=== PATIENT | female | born 1995 | race Caucasian/White ===

== ENCOUNTER 2018-08-13 16:26 | Emergency (ER) | payer OTHER ==
--- NOTE | 2018-08-13 16:55 | ED ---
Psychiatric Complaint - HPI Summary HPI Summary: A 23 y/o female presents to [facility] with a chief complaint of depression. She reports that three days ago she tried to kill herself by putting a knife to her wrists. She went to [facility] where she had blood drawn and was discharged. She reports that she just felt overwhelmed and has no current SI, but wants to get help now before the suicidal thoughts come back. She notes a Hx of anxiety and depression. 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 She claims that she still may want to use those drugs but that she doesn't have enough money. Currently she denies any smoking, drug or alcohol use. - History Of Current Complaint Chief Complaint: [facility]MentalHealth Time Seen by Provider: 08/13/18 16:37 Hx Obtained From: Patient Hx Last Menstrual Period: END OF JUNE Onset/Duration: Sudden Onset, Lasting Days, Still Present Timing: Constant Severity Initially: Mild Severity Currently: Mild Character: Depressed Aggravating Factor(s): Nothing Alleviating Factor(s): Nothing Associated Signs And Symptoms: Negative: Hostile Related History: Positive For: Prior Psychiatric Issues - Allergies/Home Medications Allergies/Adverse Reactions: Allergies Allergy/AdvReac Type Severity Reaction Status Date / Time No Known Allergies Allergy Verified 08/13/18 16:35 Home Medications: Home Medications Norethindr/Eth Estradiol(Nf) [Lo Loestrin Fe (NF)] 1 tab PO DAILY 08/13/18 [ History Confirmed 08/13/18] PMH/Surg Hx/FS Hx/Imm Hx Endocrine/Hematology History: Denies: Hx Diabetes, Hx Thyroid Disease Cardiovascular History: Denies: Hx Hypertension Respiratory History: Denies: Hx Asthma, Hx Chronic Obstructive Pulmonary Disease (COPD) GI History: Denies: Hx Ulcer Musculoskeletal History: Reports: Hx Back Problems - Surgical History Surgery Procedure, Year, and Place: aortic stenosis x2 procedures Infectious Disease History: No Infectious Disease History: Denies: Hx Clostridium Difficile, Hx Hepatitis, Hx Human Immunodeficiency Virus (HIV), Hx of Known/Suspected MRSA, Hx Shingles, Hx Tuberculosis, Hx Known/ Suspected VRE, Hx Known/Suspected VRSA, History Other Infectious Disease, Traveled Outside the [place] in Last 30 Days - Family History Known Family History: Positive: Other - mom recently with cervical CA - Social History Alcohol Use: None Substance Use Type: Reports: None Smoking Status (MU): Current Every Day Smoker Type: Cigarettes Amount Used/How Often: 1/2 pack/WEEKLY Length of Time of Smoking/Using Tobacco: ~5 YRS Have You Smoked in the Last Year: Yes Review of Systems Negative: Fever Psychological: Other - negative: SI or HI Positive: Other - positive: Pt wants to get help before SI returns All Other Systems Reviewed And Are Negative: Yes Physical Exam - Summary Physical Exam Summary: VITAL SIGNS: Reviewed. GENERAL: Patient is a well-developed and nourished FEMALE who is lying comfortable in the stretcher. Patient is not in any acute respiratory distress. HEAD AND FACE: No signs of trauma. No ecchymosis, hematomas or skull depressions. No sinus tenderness. EYES: PERRLA, EOMI x 2, No injected conjunctiva, no nystagmus. EARS: Hearing grossly intact. Ear canals and tympanic membranes are within normal limits. MOUTH: Oropharynx within normal limits. NECK: Supple, trachea is midline, no adenopathy, no JVD, no carotid bruit, no c- spine tenderness, neck with full ROM. CHEST: Symmetric, no tenderness at palpation LUNGS: Clear to auscultation bilaterally. No wheezing or crackles. CVS: Regular rate and rhythm, S1 and S2 present, no murmurs or gallops appreciated. ABDOMEN: Soft, non-tender. No signs of distention. No rebound no guarding, and no masses palpated. Bowel sounds are normal. EXTREMITIES: FROM in all major joints, no edema, no cyanosis or clubbing. NEURO: Alert and oriented x 3. No acute neurological deficits. Speech is normal and follows commands. SKIN: Dry and warm. PSYCH: Depressed, quiet, and denies any suicidal thoughts or plan. No homicidal thoughts or plan. No signs of psychosis or pressure speech. No tangential speech. Triage Information Reviewed: Yes Vital Signs On Initial Exam: Initial Vitals Temp Pulse Resp BP Pulse Ox 99.4 F 76 14 97/77 97 08/13/18 16:28 08/13/18 16:28 08/13/18 16:28 08/13/18 16:28 08/13/18 16:28 Vital Signs Reviewed: Yes Diagnostics - Vital Signs Vital Signs Temp Pulse Resp BP Pulse Ox 08/13/18 16:28 99.4 F 76 14 97/77 97 - Laboratory Result Diagrams: 08/13/18 17:22 08/13/18 17:22 Lab Statement: Any lab studies that have been ordered have been reviewed, and results considered in the medical decision making process. Re-Evaluation - Re-Evaluation First Eval Re-Evaluation Time: 17:27 Change: Unchanged Comment: Pt cleared for MHE Course/Dx - Course Assessment/Plan: Blood work w/o a significant abnormality. She is medically cleared. She is awaiting for a MHE. Patient is hemodynamically stable and A+O x 3. Patient was assess by Dr. Og from psychiatry and he recommends admission to his services. The patient will be transferred because the patient' s boyfriend is currently in the annex. The patient will be signed out to Dr. Donato at shift change pending transfer to another psychiatric facility. - Differential Dx/Clinical Impression Differential Diagnosis/HQI/PQRI: Positive: Anxiety, Depression, Suicidal Ideation Provider Diagnosis: Depression - Physician Notifications Discussed Care Of Patient With: Araceli Og Time Discussed With Above Provider: 18:10 Instructed by Provider To: Other - per mental health agency sales development associate, Dr. Alarcon has decided that the patient will be a voluntary admit. Dx: major depression Discharge - Sign-Out/Discharge Documenting (check all that apply): Sign-Out Patient Signing out patient TO: Anay Donato - pending transfer to another psychiatric facility Patient Received Moderate/Deep Sedation with Procedure: No - Discharge Plan Condition: Stable Disposition: HOME Patient Education Materials: Depression (ED), Suicide Prevention (ED) Referrals: [facility] [Outside] (Please follow up with your appointment on 08/15/18) No Primary Care Phys,NOPCP [Primary Care Provider] - - Billing Disposition and Condition Condition: STABLE - Attestation Statements Document Initiated by Scribe: Yes Documenting Scribe: Abel James Provider For Whom Sharminibdeloris is Documenting (Include Credential): Oscar Braswell MD Scribe Attestation: Abel Kruger, scribed for Oscar Braswell MD on 08/14/18 at 0813. Scribe Documentation Reviewed: Yes Provider Attestation: The documentation as recorded by the Abel gusman accurately reflects the service I personally performed and the decisions made by me, Oscar Braswell MD Status of Scribe Document: Viewed Consult Consult: At 18:35 mental health agency sales development associate reports that the patient will be transferred because the patient's boyfriend is currently in the annex.
[2018-08-13 17:05] LABS: Urine Appearance Clear; Urine Bilirubin Negative (Negative); Urine Blood Negative (Negative); Urine Color Yellow; Urine Glucose Negative (Negative); Urine Ketones Negative (Negative); Urine Nitrite Negative (Negative); Urine Protein Negative (Negative); Urine Urobilinogen Negative (Negative)
[2018-08-13 17:29] LABS: Urine Benzodiazepine Screen None Detected (None Detect); Urine Opiates Screen None Detected (None Detect)
[2018-08-13 17:34] LABS: ABS Eosinophils 0.1 10^3/ul (0-0.6); ABS Lymphocytes 1.9 10^3/ul (1.0-4.8); ABS Monocytes 0.5 10^3/ul (0-0.8); ABS Neutrophils 3.7 10^3/ul (1.5-7.7); Eosinophil % 0.9 %; Hematocrit 40 % (35-47); Hemoglobin 13.9 g/dL (12.0-16.0); Lymphocyte % 31.2 %; Mean Corpuscular HGB Conc 35 g/dL (31-36); Mean Corpuscular Hemoglobin 30 pg (27-31); Mean Corpuscular Volume 86 fL (80-97); Mean Platelet Volume 8.8 fL (7.4-10.4); Platelet Count 200 10^3/uL (150-450); Red Blood Count 4.65 10^6 /uL (3.70-4.87); Red Cell Distribution Width 13 % (10.5-15); White Blood Count 6.2 10^3/uL (3.5-10.8)
[2018-08-13 17:52] LABS: ALT 12 U/L (7-52); AST 18 U/L (13-39); Albumin 4.3 g/dL (3.2-5.2); Albumin/Globulin Ratio 1.4 (1-3); Alkaline Phosphatase 49 U/L (34-104); Anion Gap 4 mmol/L (2-11); BUN/Creatinine Ratio 14.1 (8-20); Blood Urea Nitrogen 11 mg/dL (6-24); CO2 Carbon Dioxide 26 mmol/L (22-32); Calcium 9.4 mg/dL (8.6-10.3); Chloride 107 mmol/L (101-111); EGFR African American 111.7 (>60); EGFR Non-African American 92.4 (>60); Globulin 3.1 g/dL (2-4); Glucose 100 mg/dL (70-100); Sodium 137 mmol/L (135-145); Total Protein 7.4 g/dL (6.4-8.9)
[2018-08-13 18:27] LABS: Acetaminophen < 15 mcg/mL; Alcohol < 10 mg/dL (<10); Salicylate < 2.50 mg/dL (<30)
[2018-08-13 18:43] LABS: TSH (Thyroid Stimulating Horm) 0.53 mcIU/mL (0.34-5.60)
--- NOTE | 2018-08-13 19:12 | ED ---
Progress - Progress Note Progress Note: Patient is received as a sign out from Dr. Braswell to Dr. Donato at 189908/13/18 shift change pending disposition of this mental health patient. 1929 - Patient will be discharged to home. Patient denies SI at present and states that she had SI only a few days ago. Patient's mother states that she can take her home and ensure safety of patient. Patient has an appointment with [facility]. Dr. Og has reviewed this and is agreeable with this disposition. - Consult/PCP Time Called: 17:38 Re-Evaluation - Re-Evaluation First Eval Re-Evaluation Time: 17:27 Change: Unchanged Comment: Pt cleared for MHE Second Eval Re-Evaluation Time: 19:30 Comment: 1929 - Patient will be discharged to home. Patient denies SI at present and states that she had SI only a few days ago. Patient's mother states that she can take her home and ensure safety of patient. Patient has an appointment with [facility]. Dr. Og has reviewed this and is agreeable with this disposition. Course/Dx - Course Course Of Treatment: Patient is received as a sign out from Dr. Braswell to Dr. Donato at 189908/13/18 shift change pending disposition of this mental health patient. 1929 - Patient will be discharged to home. Patient denies SI at present and states that she had SI only a few days ago. Patient's mother states that she can take her home and ensure safety of patient. Patient has an appointment with [facility]. Dr. Og has reviewed this and is agreeable with this disposition. - Diagnoses Provider Diagnoses: Depression - Provider Notifications Discussed Care Of Patient With: Araceli Og Time Discussed With Above Provider: 19:30 Instructed by Provider To: Other - 1929 - Patient will be discharged to home. Patient denies SI at present and states that she had SI only a few days ago. Patient's mother states that she can take her home and ensure safety of patient. Patient has an appointment with [facility]. Dr. Og has reviewed this and is agreeable with this disposition. Discharge - Sign-Out/Discharge Documenting (check all that apply): Patient Departure - discharge Patient Received Moderate/Deep Sedation with Procedure: No - Discharge Plan Condition: Stable Disposition: HOME Patient Education Materials: Depression (ED), Suicide Prevention (ED) Referrals: [facility] [Outside] No Primary Care Phys,NOPCP [Primary Care Provider] - - Attestation Statements Document Initiated by Scribe: Yes Documenting Scribe: DC MUJICA Provider For Whom Scribe is Documenting (Include Credential): LASHELL DONATO MD Scribe Attestation: I, DC MUJICA, scribed for LASHELL DONATO MD on 08/13/18 at 1949. Status of Scribe Document: Ready
[2018-08-13 21:00] VITALS: BP 98/75
== END 2018-08-13 20:58 | disposition home or self-care (01) ==
LOC: ED 16:26
DX: F32.9 Major depressive disorder, single episode, unspecified (principal); F17.210 Nicotine dependence, cigarettes, uncomplicated
CPT/HCPCS: 36415; 80053; 80307; 80320; 80329; 81003; 84443; 85025; 99284; G0480

== ENCOUNTER 2019-06-22 12:53 | Emergency (ER) | payer OTHER ==
[2019-06-22 13:20] VITALS: BP 91/65
[2019-06-22 13:33] LABS: Influenza A Molecular Negative (Negative); Influenza B Molecular Negative (Negative)
[2019-06-22] MEDS ORDERED: Albuterol HFA INHALER* 8 gm MDI INH ONE ×2 (13:41→13:50)
--- NOTE | 2019-06-22 13:44 | UC ---
Respiratory Complaint HPI - HPI Summary HPI Summary: 23 yo female with cough x 2 weeks 5 mos smoker no CP or SOB - History of Current Complaint Chief Complaint: UCRespiratory Stated Complaint: ST CHESTCOLD COUGH 5 MTHS PREG Time Seen by Provider: 06/22/19 12:55 Hx Obtained From: Patient Hx Last Menstrual Period: END June Onset/Duration: Gradual Onset, Lasting Hours, Lasting Weeks Severity Initially: Mild Severity Currently: Moderate Pain Intensity: 0 Pain Scale Used: 0-10 Numeric Character: Cough: Productive Aggravating Factors: Nothing - Allergies/Home Medications Allergies/Adverse Reactions: Allergies Allergy/AdvReac Type Severity Reaction Status Date / Time No Known Allergies Allergy Verified 06/22/19 12:57 Home Medications: Home Medications NK [No Home Medications Reported] 06/22/19 [History Confirmed 06/22/19] PMH/Surg Hx/FS Hx/Imm Hx Previously Healthy: Yes Cardiovascular History: Other Other Cardiovascular History: arotic stenosis Respiratory History: Bronchitis - Surgical History Surgical History: Yes Surgery Procedure, Year, and Place: aortic stenosis x2 procedures - Family History Known Family History: Positive: Unknown, Other - mom recently with cervical CA - Social History Alcohol Use: None Substance Use Type: None Smoking Status (MU): Heavy Every Day Tobacco Smoker Type: Cigarettes Amount Used/How Often: 1/2 PPD Length of Time of Smoking/Using Tobacco: ~5 YRS Have You Smoked in the Last Year: Yes Household Exposure Type: Cigarettes - Immunization History Vaccination Up to Date: Yes Review of Systems All Other Systems Reviewed And Are Negative: Yes Constitutional: Positive: Negative Skin: Positive: Negative Eyes: Positive: Negative ENT: Positive: Negative Respiratory: Positive: Cough Cardiovascular: Positive: Negative Gastrointestinal: Positive: Negative Genitourinary: Positive: Negative Motor: Positive: Negative Neurovascular: Positive: Negative Musculoskeletal: Positive: Negative Neurological/Mental Status: Positive: Negative Psychological: Positive: Negative Physical Exam Triage Information Reviewed: Yes Appearance: Well-Appearing, No Pain Distress, Well-Nourished Vital Signs: Initial Vital Signs Temp 98 F 06/22/19 13:19 Pulse 93 06/22/19 13:19 Resp 14 06/22/19 13:19 BP 91/65 06/22/19 13:19 Pulse Ox 99 06/22/19 13:19 Vital Signs Reviewed: Yes Eyes: Positive: Conjunctiva Clear ENT: Positive: Hearing grossly normal, TMs normal, Uvula midline. Negative: Nasal congestion, Nasal drainage, Tonsillar swelling, Tonsillar exudate, Trismus , Muffled voice, Hoarse voice, Sinus tenderness Dental Exam: Normal Neck: Positive: Supple, Nontender, No Lymphadenopathy Respiratory: Positive: No respiratory distress, No accessory muscle use, Wheezing Cardiovascular: Positive: RRR. Negative: No Murmur - III/ PARESH Musculoskeletal: Positive: ROM Intact, No Edema Neurological: Positive: Alert Psychological Exam: Normal Skin Exam: Normal Respiratory Course/Dx - Differential Dx/Diagnosis Provider Diagnosis: Acute bronchitis, viral Discharge ED - Sign-Out/Discharge Documenting (check all that apply): Patient Departure All imaging exams completed and their final reports reviewed: No Studies - Discharge Plan Condition: Stable Disposition: HOME Patient Education Materials: Bronchospasm (ED), How to Use a Metered-Dose Inhaler and a Spacer (ED) Forms: COVID-19 Tested & Isolation Referrals: No Primary Care Phys,NOPCP [Primary Care Provider] - Additional Instructions: use inhaler as directed recheck for fever or worsening symptoms covid test pending - Billing Disposition and Condition Condition: STABLE Disposition: Home
--- NOTE | 2019-06-26 08:30 | UC ---
- Progress Note Progress Note: Code results from June 22, 2019 comes back as undetected. Patient call patient inform the patient of the results. Course/Dx - Diagnoses Provider Diagnoses: Acute bronchitis, viral Discharge ED - Sign-Out/Discharge Documenting (check all that apply): Patient Departure All imaging exams completed and their final reports reviewed: No Studies - Discharge Plan Condition: Stable Disposition: HOME Prescriptions: Azithromyxin CARRIE (NF) [Z-Carrie (Zithromax) 250 mg tabs #6] 2 tab PO .TODAY, THEN 1 DAILY #6 tab Patient Education Materials: Bronchospasm (ED), How to Use a Metered-Dose Inhaler and a Spacer (ED) Forms: COVID-19 Tested & Isolation Referrals: No Primary Care Phys,NOPCP [Primary Care Provider] - Additional Instructions: use inhaler as directed recheck for fever or worsening symptoms covid test pending - Billing Disposition and Condition Condition: STABLE Disposition: Home
== END 2019-06-22 14:02 | disposition home or self-care (01) ==
LOC: UCCORT 12:53
DX: O26.892 Other specified pregnancy related conditions, second trimester (principal); J20.8 Acute bronchitis due to other specified organisms; Z20.828 Contact with and (suspected) exposure to other viral communicable diseases; Z3A.00 Weeks of gestation of pregnancy not specified; F17.210 Nicotine dependence, cigarettes, uncomplicated
CPT/HCPCS: 87635; 87651; 99211; A9270-GY; G0463

== ENCOUNTER 2021-08-11 18:38 | Observation (INO) ==
[2021-08-11] MEDS ORDERED: Lactated Ringers 1000 ml BAG 1,000 ML IV ONE (19:24)
[2021-08-11 19:56] LABS: Hematocrit 24 % (35-47); Hemoglobin 7.2 g/dL (12.0-16.0); Mean Corpuscular HGB Conc 30 g/dL (31-36); Mean Corpuscular Hemoglobin 19 pg (27-31); Mean Corpuscular Volume 63 fL (80-97); Red Blood Count 3.82 10^6 /uL (3.70-4.87); Red Cell Distribution Width 18 % (10-15); White Blood Count 8.7 10^3/uL (3.5-10.8)
[2021-08-11 20:48] LABS: HCG Pregnancy < 0.60 mIU/mL
[2021-08-11 20:51] LABS: Anisocytosis 1+; Hypochromasia 2+; Microcytosis 3+
[2021-08-11 20:52] LABS: ALT 14 U/L (7-52); AST 19 U/L (13-39); Albumin 3.8 g/dL (3.2-5.2); Albumin/Globulin Ratio 1.6 (1-3); Alkaline Phosphatase 46 U/L (35-149); Anion Gap 5 mmol/L (2-11); Blood Urea Nitrogen 11 mg/dL (6-24); CO2 Carbon Dioxide 26 mmol/L (22-32); Calcium 8.3 mg/dL (8.6-10.3); Chloride 109 mmol/L (101-111); Globulin 2.4 g/dL (2-4); Glucose 107 mg/dL (70-100); Potassium 3.8 mmol/L (3.5-5.0); Sodium 140 mmol/L (135-145); Total Protein 6.2 g/dL (6.4-8.9); eGFR CKD-EPI 128.2 (>60)
[2021-08-11 20:55] LABS: ABS Monocytes 0.7 10^3/ul (0-0.8); ABS Neutrophils 6.9 10^3/ul (1.5-7.7); Eosinophil % 0.5 %; Mean Platelet Volume 7.9 fL (7.4-10.4); Nucleated Red Blood Cells % 0.1; Platelet Count 213 10^3/uL (150-450)
[2021-08-11] MEDS ORDERED: Nicotine PATCH 21 MG/24 HR PATCH TRANSDERM ONE (22:57)
[2021-08-12] MEDS ORDERED: Nicotine GUM 4MG FRUIT FLAVOR PO PRN (00:26)
[2021-08-12] MEDS ORDERED: Lactated Ringers 500 ml BAG 500 ML IV ONE (00:26)
[2021-08-12 00:41] LABS: Corrected Retic Count 0.5 % (0.5-1.5); Hematocrit for Retic CNT 24 % (35-47); Immature Retic Fraction 0.24; RBC Retic Count 3.87 10^6/uL (3.70-4.87)
[2021-08-12 00:51] LABS: C Reactive Protein < 1.00 mg/L (<8.01); Cholesterol 140 mg/dL; HDL Cholesterol 42.9 mg/dL; LDH 158 U/L (140-271); LDL Cholesterol 83 mg/dL; Magnesium 1.7 mg/dL (1.9-2.7); Total Iron Binding Capacity 423 mcg/dL (250-450); Transferrin 302 mg/dL (203-362); Triglycerides 70 mg/dL
[2021-08-12] MEDS ORDERED: Magnesium Sulfate IV 3 GM in NS 0.9% 100 ml BAG 100 ML IVPB ONE (00:59)
[2021-08-12 01:06] LABS: % Iron Saturation 5 % (15-55); Iron < 20 ug/dL (50-212); Unsaturated Iron Binding 403 ug/dL
[2021-08-12 01:10] LABS: Ferritin 1.8 ng/mL (11-307)
[2021-08-12] MEDS ORDERED: Magnesium Sulfate 2 GM IV (Premix) IVPB ONE (01:22)
[2021-08-12] MEDS ORDERED: Magnesium Sulfate 1 GM IV 1 GM/100 ML BAG IV ONE (02:22)
[2021-08-12 03:26] LABS: High Sensitivity Troponin 1 Hr 10 pg/mL (<15)
[2021-08-12] MEDS: Nicotine PATCH 21 MG/24 HR PATCH TRANSDERM SCH ×2 (07:07→08:27)
[2021-08-12] MEDS ORDERED: Ondansetron 4 mg VIAL 2 MG/ML 2 ml VIAL IV PRN (08:12)
[2021-08-12 09:53] LABS: Urine Appearance Turbid; Urine Bilirubin Negative (Negative); Urine Blood Negative (Negative); Urine Color Yellow; Urine Glucose Negative (Negative); Urine Ketones Negative (Negative); Urine Nitrite Positive (Negative); Urine Protein Negative (Negative); Urine Specific Gravity 1.016 (1.002-1.030); Urine Urobilinogen Negative (Negative)
[2021-08-12 10:03] LABS: Blood Urea Nitrogen 8 mg/dL (6-24); CO2 Carbon Dioxide 22 mmol/L (22-32); Calcium 6.7 mg/dL (8.6-10.3); Glucose 91 mg/dL (70-100); Magnesium 1.7 mg/dL (1.9-2.7); Sodium 141 mmol/L (135-145); eGFR CKD-EPI 133.4 (>60)
[2021-08-12 10:05] LABS: Urine Amorphous Crystals Present (Absent); Urine Bacteria 1+ (Absent); Urine Red Blood Cell 3+(>10/hpf) (Absent); Urine Squamous Epithelial Cell Present (Absent); Urine White Blood Cell 3+(>20/hpf) (Absent)
[2021-08-12 10:06] LABS: Anion Gap 3 mmol/L (2-11); Chloride 116 mmol/L (101-111)
[2021-08-12 10:07] LABS: Urine Benzodiazepine Screen None Detected (None Detect); Urine Cannabinoids Screen Presumptive Positive (None Detect); Urine Opiates Screen None Detected (None Detect)
[2021-08-12 10:20] LABS: ABS Eosinophils 0.1 10^3/ul (0-0.6); ABS Lymphocytes 1.4 10^3/ul (1.0-4.8); ABS Monocytes 0.6 10^3/ul (0-0.8); ABS Neutrophils 3.3 10^3/ul (1.5-7.7); Eosinophil % 0.9 %; Hematocrit 28 % (35-47); Hemoglobin 8.7 g/dL (12.0-16.0); Mean Corpuscular HGB Conc 31 g/dL (31-36); Mean Corpuscular Hemoglobin 21 pg (27-31); Mean Corpuscular Volume 66 fL (80-97); Mean Platelet Volume 8.5 fL (7.4-10.4); Platelet Count 225 10^3/uL (150-450); Red Blood Count 4.19 10^6 /uL (3.70-4.87); Red Cell Distribution Width 20 % (10-15); White Blood Count 5.4 10^3/uL (3.5-10.8)
[2021-08-12] MEDS ORDERED: Iron Sucrose 200 MG in NS 0.9% 100 ml BAG 100 ML IVPB ONE (10:30)
[2021-08-12 16:25] VITALS: BP 99/73
[2021-08-13] MEDS ORDERED: Iron Sucrose 200 MG in NS 0.9% 100 ml BAG 100 ML IVPB ONE (06:00)
== END 2021-08-12 16:34 | disposition home or self-care (01) ==
LOC: ED 18:38 → INTOOBSV 08-12 00:16 → EDHOLD 08-12 00:16 → SUATTDRO 08-12 00:16
PROVIDERS: ADMIT Internal Medicine; ATTEND Internal Medicine